=== PATIENT | male | born 1955 | race Caucasian/White ===

== ENCOUNTER → 2016-10-04 | Outpatient (CLI) | payer BC ==
[2015-11-07 07:45] VITALS: BP 124/87
[~2016-10-04] MED LIST: ALBU2.5V5 NEB; ASPI81TA50 PO; BENZ100C2 PO; BREO ELLIPTA 21 EACH INH; BYSTOLIC10 MG PO; FEXO180T81 PO; IPRA3AMP NEB; LEVO750T31 PO; NITR0.4T6 SL; OMEP20CA9 PO; PRAV80TA PO; PRED-220 PO; PRED20TA PO; PRED5TAB PO; Promethazine Hcl/Codeine PO; RANO10002 PO; RANO500T2 PO; VENTOLIN HFA18 GM INH
--- NOTE | 2016-10-04 15:27 | CARD ---
APPROVED REPORT EXAM: Two-dimensional and M-mode echocardiogram with Doppler and color Doppler. Other Information Quality : GoodHR: 51bpm Rhythm : Bradycardia INDICATION Paroxysmal Atrial fibrillation RISK FACTORS Hypertension Hyperlipidemia Family History 2D DIMENSIONS RVDd3.0 (2.9-3.5cm)Left Atrium(2D)4.8 (1.6-4.0cm) IVSd1.2 (0.7-1.1cm)Aortic Root(2D)3.8 (2.0-3.7cm) LVDd5.2 (3.9-5.9cm)LVOT Diameter2.4 (1.8-2.4cm) PWd1.2 (0.7-1.1cm)LVDs3.6 (2.5-4.0cm) FS (%) 31.3 %SV76.8 ml LVEF(%)58.8 (>50%) Aortic Valve AoV Peak Eric.112.4cm/sAoV VTI26.3cm AO Peak GR.5.1mmHgLVOT Peak Eric.87.4cm/s AO Mean GR.3mmHgAVA (VMAX)3.53cm2 Mitral Valve MV E Wxielqhc02.1cm/sMV E Peak Gr.2mmHg MV DECEL [id number] A Qbxfynwh18.7cm/s MV E Mean Gr.0mmHgE/A Ratio2.6 MV A [id number] Pulmonary Valve PV Peak Cazohtnp43.4cm/s Tricuspid Valve TR P. Utuxmhvl145ir/sTR Peak Gr.36mmHg Pulmonary Vein S1 Byrvkpab58.3cm/sD2 Hnguexyq87.1cm/s PVa gwurzwhx83zbqb LEFT VENTRICLE The left ventricle is normal size. There is mild concentric left ventricular hypertrophy. The left ve ntricular systolic function is normal and the ejection fraction is within normal range. The Ejection Fraction is 55-60%. There is normal LV segmental wall motion. The left ventricular diastolic function and filling is normal for age. RIGHT VENTRICLE The right ventricle is normal size. There is normal right ventricular wall thickness. The right ventr icular systolic function is normal. ATRIA The left atrium is mildly dilated. The right atrium size is normal. The interatrial septum is intact with no evidence for an atrial septal defect or patent foramen ovale as noted on 2-D or Doppler imagi ng. AORTIC VALVE The aortic valve is mildly thickened. The aortic valve is trileaflet. Doppler and Color Flow revealed trace aortic regurgitation. There is no significant aortic valvular stenosis. MITRAL VALVE The mitral valve leaflets are thickened. There is no evidence of mitral valve prolapse. There is no m itral valve stenosis. Doppler and Color Flow revealed mild mitral regurgitation. TRICUSPID VALVE Doppler and Color Flow revealed trace to mild tricuspid regurgitation. The pulmonary artery systolic pressure is estimated at 36 mmHg. PULMONIC VALVE Doppler and Color Flow revealed trace pulmonic valvular regurgitation. There is no pulmonic valvular stenosis. GREAT VESSELS Sinus of Valsalva are mildly dilated. The ascending aorta is mild to moderately dilated (4.3cm). The pulmonary artery is normal. The IVC is normal in size and collapses >50% with inspiration. PERICARDIAL EFFUSION There is no evidence of significant pericardial effusion. Critical Notification Critical Value: No <Conclusion> The left ventricle is normal size. The left ventricular systolic function is normal and the ejection fraction is within normal range. The Ejection Fraction is 55-60%. There is mild concentric left ventricular hypertrophy. There is no significant aortic valvular stenosis. Doppler and Color Flow revealed trace aortic regurgitation. Doppler and Color Flow revealed mild mitral regurgitation. Doppler and Color Flow revealed trace to mild tricuspid regurgitation. The pulmonary artery systolic pressure is estimated at 36 mmHg. The ascending aorta is mild to moderately dilated (4.3cm).
== END | disposition home or self-care (01) ==
LOC: ECHO 11:01
PROVIDERS: ATTEND Internal Medicine Cardiovascular Disease
DX: I48.0 Paroxysmal atrial fibrillation (principal); I10 Essential (primary) hypertension; E78.5 Hyperlipidemia, unspecified
CPT/HCPCS: 93306

== ENCOUNTER → 2016-10-19 | Outpatient (CLI) | payer BC ==
[2015-11-07 07:45] VITALS: BP 124/87
--- NOTE | 2016-10-21 07:38 | SLEEP ---
DATE OF STUDY: 10/19/2016 ATTENDING PHYSICIAN: Dr. Isiah Jiménez. REFERRING PHYSICIAN: Dr. Rodriguez. The patient is 60-year-old, who weighs 245 pounds and 71 inches tall with a BMI of 34.2. The patient's [place] score was 13, suggesting moderate subjective hypersomnia. A home sleep study was performed by [facility]. The total recording time was 332 minutes. During the night of the study, the patient had no central or mixed apneas. There were 45 obstructive apneas and 37 hypopneas. The patient's apnea-hypopnea index was 15 per hour with a supine index of 42 per hour. Nocturnal oximetry study revealed an average oxygen saturation of 89% with the lowest of 79%. 246 minutes were spent in oxygen saturation of less than 90%. Mean heart rate was 54 beats per minute. IMPRESSION: 1. Mild sleep apnea-hypopnea syndrome with worsening during supine sleep. Total AHI 15 per hour with a supine AHI of 42 per hour. 2. Nocturnal hypoxia secondary to obstructive sleep apnea. RECOMMENDATIONS: 1. The patient is clinically symptomatic with an [place] score of 13. The patient would benefit from treatment of sleep apnea with either trial of CPAP or oral appliance as recommended by the dentist. 2. Follow up in 4-6 weeks to assess compliance and to follow up in clinical improvement, if the patient undergoes CPAP titration study. 3. Weight loss is strongly advised. 4. Avoid [facility] depressants. 5. Caution regarding driving until symptoms of sleep apnea resolve with the above recommendations. MAGALY CHAU MD DR: TAVO/corey JOB#: [id number] / [id number] CHET Patiño MD, ISIAH MATTHEWS
== END | disposition home or self-care (01) ==
LOC: RT 09:58
PROVIDERS: ATTEND Internal Medicine Cardiovascular Disease
DX: G47.33 Obstructive sleep apnea (adult) (pediatric) (principal)
CPT/HCPCS: G0399

== ENCOUNTER → 2016-11-19 | Outpatient (CLI) | payer BC ==
[~2016-11-19] VITALS: Ht 180.3 cm; Wt 108.9 kg
[~2016-11-19] MED LIST changes: +CONTRAST GIVEN MC PRN; +IOHEXOL 350 MG/ML 100 ML VIAL. IV ONE; +IOHEXOL 350 MG/ML 75ML VIAL. IV ONE; +SODIUM BICARBONATE VIAL 150 MEQ in IV STERILE WATER 1,000 ML IV PRN; +SODIUM BICARBONATE VIAL 150 MEQ in IV STERILE WATER 1,000 ML IV SCH
[2016-11-19 08:05] LABS: CREATININE 1.5 mg/dL (0.7-1.3); GFR 47.4; MAGNESIUM 2.1 mg/dL (1.8-2.4); POTASSIUM 4.2 mmol/L (3.5-5.1)
[2016-11-19 08:21] VITALS: BP 119/70
--- NOTE | 2016-11-19 10:22 | RAD ---
CTA of the chest with contrast, 11/19/2016: History: Follow-up dilated ascending aorta. Multidetector CT imaging was performed following an IV bolus injection of iodinated contrast material. Multiplanar reconstructions were produced including 3-D volume rendered reconstructions of the aorta. Comparison is made to a study from 01/23/2016. The ascending aorta measures approximately 4.1 cm in width, as best delineated on the coronal images. At the level of the coronary sinuses the aorta measures 4.2 cm. The aorta is unchanged in size since 01/23/2016. There are minimal scattered atherosclerotic plaques. There is no evidence of aortic dissection. There are moderate scattered coronary artery calcifications. The heart is mildly enlarged. There are calcified mediastinal lymph nodes. No mediastinal or hilar adenopathy is evident. There are moderate streaky opacities in the lower chest bilaterally. These are unchanged suggesting scarring rather than atelectasis. There is mild hazy dependent atelectasis in both lungs. No pulmonary mass is identified. There is no evidence of pleural fluid. There are moderate scattered spurs in the spine. A healed median sternotomy site is present. IMPRESSION: 1. Slight unchanged dilatation of the ascending aorta. 2. Moderate coronary artery disease. 3. Moderate bibasilar pulmonary scarring PQRS Compliance Statement: One or more of the following individualized dose reduction techniques were utilized for this examination: 1. Automated exposure control 2. Adjustment of the mA and/or kV according to patient size 3. Use of iterative reconstruction technique
== END | disposition home or self-care (01) ==
LOC: CT 07:49
PROVIDERS: ATTEND Internal Medicine Cardiovascular Disease
DX: Z01.812 Encounter for preprocedural laboratory examination (principal); I71.2 Thoracic aortic aneurysm, without rupture; Z86.79 Personal history of other diseases of the circulatory system; I10 Essential (primary) hypertension; Z87.448 Personal history of other diseases of urinary system
CPT/HCPCS: 36415; 71275; 80048; 83735; Q9967

== ENCOUNTER → 2017-01-19 | Outpatient (CLI) | payer BC ==
[2016-11-19 08:21] VITALS: BP 119/70
[~2017-01-19] MED LIST changes: +BENZ100C15 PO; -BENZ100C2 PO; -CONTRAST GIVEN MC PRN; -IOHEXOL 350 MG/ML 100 ML VIAL. IV ONE; -IOHEXOL 350 MG/ML 75ML VIAL. IV ONE; +NITR0.4T22 SL; -NITR0.4T6 SL; -SODIUM BICARBONATE VIAL 150 MEQ in IV STERILE WATER 1,000 ML IV PRN; -SODIUM BICARBONATE VIAL 150 MEQ in IV STERILE WATER 1,000 ML IV SCH
--- NOTE | 2017-01-20 19:54 | SLEEP ---
DATE OF STUDY: 01/19/2017 Dr. Hester is the attending. OBJECTIVE: The patient is a 61-year-old male with previous study showing obstructive sleep apnea and hypopnea. He is here for CPAP titration. Prior study was performed on 10/19/2016 showing apnea-hypopnea index of 15 events per hour of sleep. Body mass index 34. [place] sleep score 13. INTERPRETATION: Sleep efficiency of 72% across the 6.8 hours of recording time. Stage volumes are appropriate for age. Sleep onset latency is 3 minutes. Respiratory monitoring shows a total of 15 events for an apnea-hypopnea index of 3.1 events per hour of sleep. Minimum oxygen saturation is 87%. The patient is started on treatment and had a setting of 9 cm. There are no apneas. There are no significant periodic limb movements of sleep or cardiac arrhythmias. IMPRESSION: 1. Abnormal polysomnogram showing obstructive sleep apnea and hypopnea treatable with on 7 cm of CPAP using a Respironics Dreamweaver nasal pillow, medium size. A 9 cm could be used if the symptoms persist on 7 cm. 2. The patient should also pursue weight loss and avoid sedatives and alcohol. Thank you for letting us help with the patient's care. LANI HAMLIN MD DR: CARIN/corey JOB#: [id number] / [id number]
== END | disposition home or self-care (01) ==
LOC: RT 18:52
PROVIDERS: ATTEND Internal Medicine Pulmonary Disease
DX: G47.33 Obstructive sleep apnea (adult) (pediatric) (principal)
CPT/HCPCS: 95810

== ENCOUNTER → 2017-03-04 | Outpatient (CLI) | payer BC ==
[2016-11-19 08:21] VITALS: BP 119/70
[2017-03-04 17:37] LABS: CALCIUM 8.9 mg/dL (8.5-10.1); CREATININE 1.7 mg/dL (0.7-1.3); MAGNESIUM 1.9 mg/dL (1.8-2.4); POTASSIUM 3.9 mmol/L (3.5-5.1)
== END | disposition home or self-care (01) ==
LOC: LAB 17:06
PROVIDERS: ATTEND Internal Medicine Cardiovascular Disease
DX: I48.0 Paroxysmal atrial fibrillation (principal)
CPT/HCPCS: 36415; 80048; 83735

== ENCOUNTER → 2017-05-24 | Outpatient (CLI) | payer BC ==
[2016-11-19 08:21] VITALS: BP 119/70
[~2017-05-24] MED LIST changes: +REGADENOSON 0.4 MG/5 ML DISP.SYRIN. IV ONE
[2017-05-24 10:31] LABS: ALBUMIN 4.3 g/dL (3.4-5.0); ALBUMIN/GLOBULIN RATIO 1.2 (1.0-1.7); CREATININE 1.4 mg/dL (0.7-1.3); GFR 51.4; TOTAL BILIRUBIN 1.1 mg/dL (0.2-1.0)
[2017-05-24 10:32] LABS: CHOLESTEROL/HDL RATIO 3.5
--- NOTE | 2017-05-24 13:23 | RAD ---
APPROVED REPORT Test Type: Pharmacological Stress Nurse/Tech: arvind trotter Test Indications: CAD Cardiac History: HTN, CAD, CARDIAC STENT, CABG 2006, SEE EHR Medications: SEE EHR Medical History: CDK, SEE EHR Resting ECG: SR Resting Heart Rate: 60 bpm Resting Blood Pressure: 140/81mmHg Pretest Chest Pain: No chest pain Nurse/Tech Notes NO RESIRATORY DISTRESS NOTED, NO CHEST PAIN STATED. Consent: The procedure was explained to the patient in lay terms. Informed consent was witnessed. Jasiel eout was entered into [employer]. History and Stress Test performed by RT Jerry (R) (N) Pharm. Details Pharmacologic stress testing was performed using 0.4mg per 5ml of regadenoson given intravenously ove r 7-10 seconds. Stress Symptoms ABDOMINAL CRAMPING, HEADACHE. POST EXERCISE Reason for Termination: Infusion complete Max HR: 95 bpm Max Blood Pressure: 140/81mmHg Chest Pain: No. Arrhythmia: No. ST Change: No. INTERPRETATION Stress EKG Conclusion: Baseline EKG showed sinus rhythm. No ischemic changes at peak stress. No arr hythmias. Imaging Protocol IMAGE PROTOCOL: Rest Tc-99m/stress Tc-99m 1 day Rest: Stress: Viability: Radiopharm.Tc99m VfuspgpgcYw74v Sestamibi Gcud49fBt 32mCi Img Date 05/24/2017 05/24/2017 Inj-Img Xsbm36dmr. 60min. Rest Admin Site:IV - Right ForearmAdministrator:MATY Arias, ARRT (R)(N) Stress Admin Site: IV - Right ForearmAdministrator: RT Jerry (R)(N) STRESS DATA End Diast. Vol.120.0mlAv. Heart Rate69.0bpm End Syst. Vol.38.0mlCO Index BSA0.0L/min Myocardial Spdl381.0gEject. Mzfqxgne35.0% Stress Rates Pk. Fill Rate3.15EDV/secLVtime Pk. Fill 176.90msec Pk. Empty Rate4.19ESV/secLVtime Pk. Epbgx120.91msec 06/29 Pk. Fill1.65EDV/sec Stress Scores Regional WT2.00Summed WT12.00 Regional WM0.00Summed WM2.00 Study quality was good. Left Ventricular size was Normal at Rest and Stress. Lung uptake was Normal. Left Ventricular ejection fraction is 68%. The rest and stress images show normal perfusion, normal contraction and thickening. LV Perf. Quant 17 Seg. SSS4.00 17 Seg. SRS2.00 17 Seg. SDS2.00 Stress Defect Extent (% LAD)0.00Rest Defect Extent (% LAD)0.00Rev. Defect Extent (% LAD)0.00 Stress Defect Extent (% LCX) 38.80Rest Defect Extent (% LCX)25.00Rev. Defect Extent (% LCX)0.00 Stress Defect Extent (% RCA)0.00Rest Defect Extent (% RCA)0.00Rev. Defect Extent (% RCA)0.00 Stress Defect Extent (% NATHAN)7.20Rest Defect Extent (% NATHAN)4.30Rev. Defect Extent (% NATHAN)0.00 Conclusion 1. Regadenoson cardioisotope stress test did not show any evidence of ischemia or infarct. 2. Normal left ventricular systolic function with ejection fraction calculated at 68%. 3. Low risk for cardiac events.
== END | disposition home or self-care (01) ==
LOC: NM 09:44
PROVIDERS: ATTEND Internal Medicine Cardiovascular Disease
DX: I49.3 Ventricular premature depolarization (principal); I25.10 Atherosclerotic heart disease of native coronary artery without angina pectoris; I13.0 Hypertensive heart and chronic kidney disease with heart failure and stage 1 through stage 4 chronic kidney disease, or unspecified chronic kidney disease; N18.9 Chronic kidney disease, unspecified; I50.9 Heart failure, unspecified
CPT/HCPCS: 36415; 78452; 80053; 80061; 93017; 96374; 96375; 96376; A9500; J2785

== ENCOUNTER 2018-03-13 08:58 | Outpatient (CLI) | payer BC ==
[~2018-03-13 08:58] MED LIST changes: +BENZ-8 PO; -BENZ100C15 PO; -IPRA3AMP NEB; +IPRA3AMP29 NEB; -REGADENOSON 0.4 MG/5 ML DISP.SYRIN. IV ONE; +SODIUM BICARBONATE VIAL 150 MEQ in IV STERILE WATER 1,000 ML IV ONE
[2018-03-13] MEDS ORDERED: CONTRAST GIVEN. MC PRN (09:45)
[2018-03-13] MEDS ORDERED: IOHEXOL 240 MG/ML 50ML VIAL. PO ONE (10:00)
[2018-03-13] MEDS ORDERED: IOHEXOL 300 MG/ML 100ML VIAL. IV ONE (10:00)
--- NOTE | 2018-03-13 12:21 | RAD ---
EXAM: CT Abdomen and Pelvis with IV contrast CLINICAL HISTORY: ENLARGED LYMPH NODES COMPARISON: none TECHNIQUE: Helical CT of the abdomen and pelvis was performed following the administration of intravenous contrast. Oral contrast was administered. Axial, coronal and sagittal reformatted images were generated. PQRS compliance statement - One or more of the following individualized dose reduction techniques were utilized for this study: 1. Automated exposure control 2. Adjustment of the mA and/or kV according to patient size 3. Use of iterative reconstruction technique FINDINGS: Lower chest: Linear platelike opacities in the lung bases, middle lobe and lingula likely scarring/atelectasis. Coronary artery calcifications are seen. No pericardial effusion. Abdomen and Pelvis: Diffuse hepatic hypoattenuation consistent with hepatic steatosis. No focal liver lesion. Cholecystectomy clips are seen. No biliary ductal dilatation. Spleen is unremarkable. Adrenal glands are normal. Pancreas is unremarkable. The left kidney is not visualized, possibly from prior nephrectomy or congenital. No focal renal lesion. No hydronephrosis. No small or large bowel dilatation to suggest bowel obstruction. Appendix is normal. Moderate colonic stool content most prominent in the ascending and transverse colon. No abdominal or pelvic ascites. Atherosclerotic calcifications of aorta and iliacs are seen. No abdominal or pelvic ascites. A left common iliac chain lymph node measures 1.9 x 1.7 cm. Additional prominent but not enlarged left common and external iliac artery lymph nodes are seen. There is unremarkable. Dystrophic calcifications are seen within the prostate. Bones: Bilateral hip joint degenerative changes are seen. Multilevel degenerative changes of the spine are noted. IMPRESSION: 1. An enlarged left common iliac lymph node measures 1.9 x 1.7 cm. Additional prominent but not enlarged left common and and external iliac chain lymph nodes are seen. 2. The left kidney is not seen, possibly congenital/developmental or postsurgical. 3. There has been a cholecystectomy. 4. No evidence of bowel obstruction. The appendix is normal. Electronically signed by: Richard Vega MD (03/13/2018 12:17 PM) [facility]
[2018-03-13 13:50] VITALS: BP 135/75
== END 2018-03-13 13:50 | disposition home or self-care (01) ==
LOC: CT 08:58
PROVIDERS: ATTEND Family Medicine
DX: I70.0 Atherosclerosis of aorta (principal); I25.10 Atherosclerotic heart disease of native coronary artery without angina pectoris; K76.0 Fatty (change of) liver, not elsewhere classified; R59.0 Localized enlarged lymph nodes; I13.0 Hypertensive heart and chronic kidney disease with heart failure and stage 1 through stage 4 chronic kidney disease, or unspecified chronic kidney disease; I50.9 Heart failure, unspecified; N18.2 Chronic kidney disease, stage 2 (mild); I25.2 Old myocardial infarction; E78.5 Hyperlipidemia, unspecified; I48.91 Unspecified atrial fibrillation; E78.00 Pure hypercholesterolemia, unspecified; Z87.448 Personal history of other diseases of urinary system; Z86.79 Personal history of other diseases of the circulatory system; Z86.19 Personal history of other infectious and parasitic diseases
CPT/HCPCS: 74177; Q9966; Q9967

== ENCOUNTER → 2018-04-07 | Outpatient (CLI) | payer BC ==
[~2018-04-07] MED LIST changes: +METO-239 PO; -SODIUM BICARBONATE VIAL 150 MEQ in IV STERILE WATER 1,000 ML IV ONE
[2018-04-07 12:19] VITALS: BP 127/56
--- NOTE | 2018-04-07 12:35 | RAD ---
ABDOMEN COMPLETE History: Hepatitis C, history of left nephrectomy Comparison: None. Findings: Multiple sonographic images of the abdomen are submitted. Pancreas is not well-visualized in its entirety due to bowel gas, no obvious abnormality of the body. There is diffuse coarsening of the echotexture of the liver. Right lobe of the liver measured 21.3 cm longitudinal. There has been cholecystectomy. Abdominal aortic caliber is within normal limits up to 1.8 cm although obscured approximately by bowel gas. There is limited segmental visualization of the inferior vena cava. Right kidney measured 15.3 x 6 x 7.4 cm, no hydronephrosis. There has been left nephrectomy. Spleen measured 10.2 cm. Common bile duct could not be visualized due to bowel gas. Impression: 1. There is diffuse coarsening of the echotexture of the liver which may be seen with hepatic steatosis or other hepatocellular disease. There is hepatomegaly. There is no free fluid or splenomegaly. 2. There has been left nephrectomy. 3. Common bile duct is not well-visualized on this exam. Electronically signed by: Clayton Oconnor MD (04/07/2018 12:31 PM) [facility]
== END | disposition home or self-care (01) ==
LOC: US 14:35
PROVIDERS: ATTEND Internal Medicine Gastroenterology
DX: B19.20 Unspecified viral hepatitis C without hepatic coma (principal); Z90.5 Acquired absence of kidney
CPT/HCPCS: 76700

== ENCOUNTER → 2018-04-07 | Day surgery (SDC) | payer BC ==
[~2018-04-07] MED LIST changes: +HYDROmorphone 2 MG/ML VIAL IV PRN; +IV RINGERS,LACTATED 1000ML 1,000 ML IV SCH; +LIDOCAINE 1% PF 2 ML VIAL. ID PRN; +LIDOCAINE 2% PF 2ML VIAL. ONE; +MORPHINE SULFATE 2 MG/ML VIAL. IV PRN; +ONDANSETRON PF 4 MG/2 ML VIAL. IV PRN; +PROCHLORPERAZINE 10 MG/2 ML VIAL. IV PRN; +PROPOFOL 40 ML IV ONE; +fentaNYL PF VIAL 100 MCG/2 ML VIAL IV PRN
[2018-04-07 12:19] VITALS: BP 127/56
--- NOTE | 2018-04-07 23:41 | CONS ---
DATE OF CONSULTATION: 04/07/2018 REFERRING PHYSICIAN: Dr. Isiah Jiménez. HISTORY OF PRESENT ILLNESS: This is a 62-year-old male with past medical history significant for asthma, COPD, heart disease, hypertension, hyperlipidemia, status post OK, renal insufficiency and hepatitis who is seen for a screening colon exam. Bowel habits are regular without diarrhea or constipation. There has been no melena or hematochezia. Weight and appetite are stable. Otherwise, no additional complaints. PAST MEDICAL HISTORY: Asthma, COPD, reflux, OK, organic heart disease, hypertension. ALLERGIES: None. MEDICATIONS: Include albuterol, aspirin, benzonatate, Rere, Breo Ellipta, Levaquin, metoprolol, nitroglycerin, prednisone, pravastatin, Ranexa. PAST SURGICAL HISTORY: He is status post CABG, status post eye surgery, status post gallbladder surgery. FAMILY HISTORY: Significant for cerebrovascular disease, diabetes, hypertension in multiple family members. SOCIAL HISTORY: He is a social drinker, nonsmoker. REVIEW OF SYSTEMS: Per records. PHYSICAL EXAMINATION: GENERAL: Reveals a well-nourished, well-developed male, alert, cooperative, in no acute distress. VITAL SIGNS: Temperature 97.7, pulse 64, respirations 20. HEENT: Normocephalic, atraumatic head. Pupils and extraocular muscles are not tested. Sclerae anicteric. NECK: Supple. LUNGS: Clear. CARDIOVASCULAR: Reveals an S1, S2 without S3, S4 or appreciable murmur. ABDOMEN: Soft abdomen, normal bowel sounds without appreciable hepatosplenomegaly. EXTREMITIES: Reveals no cyanosis, clubbing or edema. IMPRESSION AND PLAN: Colorectal screening is warranted at this time. Risks and benefits were previously discussed with the patient including risk of hemorrhage or perforation, is willing to proceed. ZACKARY WOMACK MD DR: RACHNA/corey JOB#: [id number] / [id number]
== END | disposition home or self-care (01) ==
LOC: ENDOS 09:21
PROVIDERS: ATTEND Internal Medicine Gastroenterology
DX: Z12.11 Encounter for screening for malignant neoplasm of colon (principal); K64.0 First degree hemorrhoids; J44.9 Chronic obstructive pulmonary disease, unspecified; E78.5 Hyperlipidemia, unspecified; I25.2 Old myocardial infarction; K21.9 Gastro-esophageal reflux disease without esophagitis; I11.9 Hypertensive heart disease without heart failure; Z79.82 Long term (current) use of aspirin; Z79.899 Other long term (current) drug therapy; Z95.1 Presence of aortocoronary bypass graft; Z90.49 Acquired absence of other specified parts of digestive tract; Z98.890 Other specified postprocedural states; Z83.3 Family history of diabetes mellitus; Z82.49 Family history of ischemic heart disease and other diseases of the circulatory system; Z82.3 Family history of stroke; Z72.89 Other problems related to lifestyle
CPT/HCPCS: 45378; J2001; J2704

== ENCOUNTER → 2018-05-25 | Outpatient (CLI) | payer BC ==
[2018-04-07 12:19] VITALS: BP 127/56
[~2018-05-25] MED LIST changes: -HYDROmorphone 2 MG/ML VIAL IV PRN; -IV RINGERS,LACTATED 1000ML 1,000 ML IV SCH; -LIDOCAINE 1% PF 2 ML VIAL. ID PRN; -LIDOCAINE 2% PF 2ML VIAL. ONE; -MORPHINE SULFATE 2 MG/ML VIAL. IV PRN; -ONDANSETRON PF 4 MG/2 ML VIAL. IV PRN; -PROCHLORPERAZINE 10 MG/2 ML VIAL. IV PRN; -PROPOFOL 40 ML IV ONE; -fentaNYL PF VIAL 100 MCG/2 ML VIAL IV PRN
--- NOTE | 2018-05-25 15:25 | RAD ---
FDG tumor localization scan, PET/CT, 05/25/2018: History: Lymphoma Following IV injection of 13.3 mCi of 18 F-FDG imaging was performed from the skull base to the proximal thighs. The noncontrast CT component was performed for attenuation correction and anatomic localization purposes rather than for primary diagnosis. The patient's blood glucose level at time of injection was 114 MG/DL. Physiologic activity is evident in the neck. No hypermetabolic neck lesion is seen. No abnormal pulmonary FDG uptake is seen. Low level FDG uptake is evident at the right hilum, similar to the mediastinum background. No hypermetabolic mediastinal or hilar adenopathy is seen. Normal GI tract and urinary tract activity is present in the abdomen and pelvis. There is a mildly enlarged left common iliac lymph node measures approximately 2 cm in greatest dimension. It is unchanged in size since 03/13/2018. It demonstrates increased FDG uptake with a maximum SUV of 4.6. No other hypermetabolic abdominal or pelvic adenopathy is seen. Incidental CT findings include the presence of mucosal thickening in the right maxillary sinus. There are streaky linear opacities in both lungs suggesting scarring. Moderate scattered coronary artery calcifications are present. There are patchy geographic areas of decreased density in the liver most compatible with hepatic steatosis. Changes of a prior left nephrectomy are evident. IMPRESSION: 1. A single mildly enlarged, hypermetabolic left common iliac lymph node is identified. This could be neoplastic or reactive. 2. No other significant FDG-PET abnormality is detected. 3. Miscellaneous CT findings as described above.
== END | disposition home or self-care (01) ==
LOC: PETSC 08:28
PROVIDERS: ATTEND Surgery
DX: R59.0 Localized enlarged lymph nodes (principal); R91.8 Other nonspecific abnormal finding of lung field; Z85.72 Personal history of non-Hodgkin lymphomas
CPT/HCPCS: 78815; A9552

== ENCOUNTER → 2020-04-11 | Outpatient (CLI) | payer BC ==
[2018-04-07 12:19] VITALS: BP 127/56
[~2020-04-11] MED LIST changes: +OMEP20CA16 PO; -OMEP20CA9 PO
--- NOTE | 2020-04-11 15:24 | [facility] ---
3 views left shoulder without comparison for left shoulder pain, decreased range of motion, no weakness. FINDINGS: There is no fracture, dislocation, or acute osseous abnormality identified. There is likely some narrowing of the glenohumeral joint due to osteoarthritis. Degenerative changes are seen about the acromioclavicular joint as well, and there is some enthesopathy at the insertion site of the rotator cuff which may reflect chronic tendinopathy. IMPRESSION: 1. No acute osseous abnormality. 2. Degenerative changes as described. Electronically signed by: Eric Gabriel MD (04/11/2020 3:21 PM) [id number]
== END ==
LOC: KCIC 12:57
PROVIDERS: ATTEND Family Medicine
DX: M19.012 Primary osteoarthritis, left shoulder (principal)
CPT/HCPCS: 73030

== ENCOUNTER → 2020-05-26 | Outpatient (CLI) | payer BC ==
[2018-04-07 12:19] VITALS: BP 127/56
[2020-05-26 12:05] LABS: BASO # 0.1 x10^3/uL (0.0-0.2); BASO % 1 % (0-3); EOS # 0.2 x10^3/uL (0.0-0.7); EOS % 2 % (0-3); HEMATOCRIT 42.3 % (39.0-53.0); HEMOGLOBIN 14.6 g/dL (13.0-17.5); LYMPH # 1.9 x10^3/uL (1.0-4.8); LYMPH % 22 % (24-48); MEAN CORPUSCULAR HEMOGLOBIN 34 pg (25-35); MEAN CORPUSCULAR HGB CONC 35 g/dL (31-37); MEAN CORPUSCULAR VOLUME 98 fL (79-100); MONO # 0.9 x10^3/uL (0.0-1.1); MONO % 11 % (0-9); NEUT # 5.5 x10^3/uL (1.8-7.7); NEUT % 65 % (31-73); PLATELET COUNT 289 x10^3/uL (140-400); RED BLOOD COUNT 4.31 x10^6/uL (4.30-5.70); RED CELL DISTRIBUTION WIDTH 13.4 % (11.5-14.5); WHITE BLOOD COUNT 8.6 x10^3/uL (4.0-11.0)
[2020-05-26 12:27] LABS: ALBUMIN 4.2 g/dL (3.4-5.0); ALBUMIN/GLOBULIN RATIO 1.2 (1.0-1.7); CALCIUM 9.4 mg/dL (8.5-10.1); CREATININE 1.1 mg/dL (0.7-1.3); GFR 67.2; POTASSIUM 4.2 mmol/L (3.5-5.1); TOTAL BILIRUBIN 0.6 mg/dL (0.2-1.0); TOTAL PROTEIN 7.8 g/dL (6.4-8.2)
[2020-05-26 12:29] LABS: CHOLESTEROL/HDL RATIO 3.3
== END ==
LOC: LAB 11:12
PROVIDERS: ATTEND Family Medicine
DX: Z12.5 Encounter for screening for malignant neoplasm of prostate (principal); E78.5 Hyperlipidemia, unspecified; R29.898 Other symptoms and signs involving the musculoskeletal system
CPT/HCPCS: 36415; 80053; 80061; 85025; G0103